=== PATIENT | male | born 1970 | race Caucasian/White ===

== ENCOUNTER 2021-08-02 14:03 | Inpatient (IN) ==
[2021-08-02] MEDS ORDERED: ALBUTEROL/IPRATROPIUM 3 ML NEB RESP TX STA (15:20)
[2021-08-02 15:25] LABS: INR 1.2; PT Patient Result 13.5 SECS (10.5-12.0)
[2021-08-02 15:36] LABS: Albumin 3.4 G/DL (3.4-5.0); Bilirubin,Total 0.8 MG/DL (0.20-1.00); Calcium 8.6 MG/DL (8.5-10.1); Potassium 3.9 MMOL/L (3.5-5.1)
[2021-08-02 15:38] LABS: Basophils # 0.1 10*3/uL (0.0-0.2); Eosinophils # 0.1 10*3/uL (0.0-0.87); Eosinophils % 1.4 % (0.00-10.9); Hematocrit 49.7 VOL% (42.0-52.0); Hemoglobin 15.1 GM/DL (14.0-18.0); Immature Granulocytes % 0.3 %; Immature Granulocytes Absolute 0.02 #; Lymphocytes # 1.7 10*3/uL (1.4-4.0); Lymphocytes % 24.6 % (21.2-54.2); Mean Corpuscular HGB Conc 30.4 GM/DL (32-36); Mean Corpuscular Volume 88.3 FL (87-102); Mean Platelet Volume 11.3 FL (9.6-12.0); Monocytes # 0.4 10*3/uL (0.11-0.8); Monocytes % 6.2 % (1.7-12.7); Neutrophils % 66.5 % (38.7-73.9); Platelet Count 248 T/CUMM (130-400); Red Blood Count 5.63 MC/CUMM (3.8-5.5); Red Cell Distribution Width 14.5 % (9.3-17.3); White Blood Count 6.9 T/CUMM (4-12)
[2021-08-02 15:40] LABS: Arterial Base Excess iSTAT 1 MMOL/L (-2.5-2.5); Arterial Bicarbonate iSTAT 26.2 MMOL/L (20-26); Arterial O2 Saturation iSTAT 98 % (95-100); Arterial PCO2 iSTAT 43 MM HG (35-48); Arterial PO2 iSTAT 109 MM HG (80-95); Arterial Total CO2 iSTAT 27 MMO/L (23-27); Arterial pH iSTAT 7.397 (7.35-7.45)
[2021-08-02] MEDS ORDERED: FUROSEMIDE 40 MG/4 ML VIAL IV STA (15:43)
[2021-08-02] MEDS ORDERED: ASPIRIN 325 MG TABLET PO STA (15:43)
[2021-08-02] MEDS ORDERED: DEXTROSE 50% 25 GM/50 ML VIAL IV PRN (17:27)
[2021-08-02] MEDS ORDERED: GLUCAGON 1 MG VIAL IM PRN ×2 (17:27→17:28)
[2021-08-02] MEDS ORDERED: MAGNESIUM SULF RIDER 2 GM/50 ML PREMIX IV PRN (17:28)
[2021-08-02] MEDS ORDERED: MAGNESIUM SULF RIDER 4 GM/100 ML PREMIX IV PRN (17:28)
[2021-08-02] MEDS ORDERED: ONDANSETRON 4 MG/2 ML VIAL IV PRN (17:28)
[2021-08-02] MEDS ORDERED: DEXTROSE 10% 250 ML BAG IV PRN (17:51)
[2021-08-02 18:21] LABS: Thyroid Stimulating Hormone 3.26 uIU/ml (0.358-3.74)
[2021-08-02 18:30] VITALS: BP 148/120
[2021-08-02 18:40] LABS: Bacteria,Urine Occasional /HPF (Few); Hyaline Casts,Urine 3 /LPF (0-3); Mucus,Urine Few /LPF (Occasional); RBC,Urine <1 /HPF (0-4); Squamous Epithelial Cell,Urine Occasional /HPF (0-10)
[2021-08-02] MEDS: POLYETHYLENE GLYCOL POWDER 17 GM PACK PO SCH (18:40)
[2021-08-02 18:43] LABS: Urine Appearance Clear (Clear); Urine Color Yellow (Yellow); Urine pH 5.5 (4.5-8.0)
[2021-08-02 18:44] LABS: Bilirubin,Urine Negative (Negative); Blood, Urine Negative (Negative); Glucose,Urine (UA) Negative (Negative); Ketones,Urine Negative (Negative); Nitrite,Urine Negative (Negative); Protein,Urine 100 mg/dL (Negative); Urine Specific Gravity >= 1.030 (1.001-1.035); Urine Urobilinogen < 2.0 eU/dL (<2.0)
[2021-08-02] MEDS: FUROSEMIDE INJ 100 MG in SODIUM CHLORIDE 0.9% 90 ML IV SCH (18:51)
[2021-08-02] MEDS ORDERED: ENOXAPARIN 30 MG/0.3 ML SYRINGE SUBCUT SCH (21:00)
[2021-08-02] MEDS: ENOXAPARIN 40 MG/0.4 ML SYRINGE SUBCUT SCH (21:03)
[2021-08-02] MEDS: carvediloL 3.125 MG TABLET PO SCH (21:04)
[2021-08-02] MEDS: INSULIN REGULAR 100 UNIT/ML SUBCUT SCH (21:04)
[2021-08-02] MEDS: POTASSIUM CHLORIDE 20 MEQ TABLET PO SCH ×2 (21:04→21:05)
[2021-08-03 05:52] LABS: Basophils # 0.1 10*3/uL (0.0-0.2); Basophils % 0.6 % (0.0-0.8); Eosinophils # 0.2 10*3/uL (0.0-0.87); Eosinophils % 2.1 % (0.00-10.9); Hematocrit 47.8 VOL% (42.0-52.0); Hemoglobin 14.8 GM/DL (14.0-18.0); Immature Granulocytes % 0.3 %; Immature Granulocytes Absolute 0.02 #; Lymphocytes # 1.4 10*3/uL (1.4-4.0); Lymphocytes % 17.4 % (21.2-54.2); Mean Corpuscular Volume 86.3 FL (87-102); Monocytes # 0.6 10*3/uL (0.11-0.8); Monocytes % 7.6 % (1.7-12.7); Platelet Count 238 T/CUMM (130-400); Red Blood Count 5.54 MC/CUMM (3.8-5.5); Red Cell Distribution Width 14.3 % (9.3-17.3)
[2021-08-03 06:25] LABS: Albumin 3.3 G/DL (3.4-5.0); Bilirubin,Total 0.8 MG/DL (0.20-1.00); Calcium 8.9 MG/DL (8.5-10.1); Osmolality,Calculated 281.4 MOS/KG (273-304); Potassium 3.6 MMOL/L (3.5-5.1); Risk Ratio 4.06; Total Protein 7.2 G/DL (6.4-8.2); VLDL Cholesterol 19.2 MG/DL
[2021-08-03] MEDS: INSULIN REGULAR 100 UNIT/ML SUBCUT SCH ×4 (08:05→21:54)
[2021-08-03] MEDS: POTASSIUM CHLORIDE 20 MEQ TABLET PO SCH ×2 (08:51→21:20)
[2021-08-03] MEDS: carvediloL 3.125 MG TABLET PO SCH ×2 (08:52→21:20)
[2021-08-03] MEDS: SPIRONOLACTONE 25 MG TABLET PO SCH (08:52)
[2021-08-03] MEDS: POLYETHYLENE GLYCOL POWDER 17 GM PACK PO SCH (08:52)
[2021-08-03] MEDS: LOSARTAN 25 MG TABLET PO SCH (08:54)
[2021-08-03] MEDS: ASPIRIN EC 81 MG TABLET PO SCH (08:54)
[2021-08-03] MEDS: PANTOPRAZOLE 40 MG TABLET PO SCH (08:54)
[2021-08-03] MEDS ORDERED: metOLazone 2.5 MG TABLET PO SCH (09:00)
[2021-08-03] MEDS: FUROSEMIDE INJ 100 MG in SODIUM CHLORIDE 0.9% 90 ML IV SCH (11:25)
[2021-08-03] MEDS ORDERED: ALBUTEROL/IPRATROPIUM 3 ML NEB RESP TX PRN (11:58)
[2021-08-03] MEDS: ENOXAPARIN 40 MG/0.4 ML SYRINGE SUBCUT SCH (21:20)
[2021-08-03] MEDS: guaiFENesin 200 MG/10 ML UDCUP PO PRN (21:25)
[2021-08-04] MEDS: guaiFENesin 200 MG/10 ML UDCUP PO PRN (02:30)
[2021-08-04] MEDS: INSULIN REGULAR 100 UNIT/ML SUBCUT SCH ×4 (08:22→22:03)
[2021-08-04] MEDS: FUROSEMIDE INJ 100 MG in SODIUM CHLORIDE 0.9% 90 ML IV SCH (08:22)
[2021-08-04 08:35] LABS: Calcium 8.4 MG/DL (8.5-10.1); Osmolality,Calculated 276.7 MOS/KG (273-304); Potassium 3.4 MMOL/L (3.5-5.1)
[2021-08-04] MEDS ORDERED: POTASSIUM CHLORIDE 20 MEQ TABLET PO ONE (09:30)
[2021-08-04] MEDS: POLYETHYLENE GLYCOL POWDER 17 GM PACK PO SCH (09:31)
[2021-08-04] MEDS: ASPIRIN EC 81 MG TABLET PO SCH (09:31)
[2021-08-04] MEDS ORDERED: KETOROLAC 15 MG/1 ML VIAL IV ONE (09:31)
[2021-08-04] MEDS: POTASSIUM CHLORIDE 20 MEQ TABLET PO SCH ×2 (09:32→21:25)
[2021-08-04] MEDS: PANTOPRAZOLE 40 MG TABLET PO SCH (09:32)
[2021-08-04] MEDS: carvediloL 3.125 MG TABLET PO SCH ×2 (09:32→21:25)
[2021-08-04] MEDS: SPIRONOLACTONE 25 MG TABLET PO SCH (09:33)
[2021-08-04] MEDS: LOSARTAN 25 MG TABLET PO SCH (09:33)
[2021-08-04] MEDS ORDERED: MAGNESIUM CITRATE 300 ML BOTTLE PO ONE (09:40)
[2021-08-04 10:25] LABS: Barbiturates Screen,Urine Negative (Negative); Benzodiazepines Screen,Urine Negative (Negative); Cannabinoid Screen,Urine Negative (Negative); Opiate Screen,Urine Negative (Negative); Phencyclidine Screen,Urine Negative (Negative)
[2021-08-04] MEDS: FUROSEMIDE 20 MG TABLET PO SCH (16:44)
[2021-08-04] MEDS: ENOXAPARIN 40 MG/0.4 ML SYRINGE SUBCUT SCH (21:25)
[2021-08-05 04:50] LABS: Calcium 8.7 MG/DL (8.5-10.1); Osmolality,Calculated 281.5 MOS/KG (273-304); Potassium 4.6 MMOL/L (3.5-5.1)
[2021-08-05] MEDS: INSULIN REGULAR 100 UNIT/ML SUBCUT SCH ×3 (07:57→15:49)
[2021-08-05] MEDS: FUROSEMIDE 20 MG TABLET PO SCH ×2 (08:04→16:02)
[2021-08-05] MEDS: LOSARTAN 25 MG TABLET PO SCH (09:23)
[2021-08-05] MEDS: carvediloL 3.125 MG TABLET PO SCH (09:23)
[2021-08-05] MEDS: PANTOPRAZOLE 40 MG TABLET PO SCH (09:23)
[2021-08-05] MEDS: POLYETHYLENE GLYCOL POWDER 17 GM PACK PO SCH (09:23)
[2021-08-05] MEDS: POTASSIUM CHLORIDE 20 MEQ TABLET PO SCH (09:23)
[2021-08-05] MEDS: SPIRONOLACTONE 25 MG TABLET PO SCH (09:23)
[2021-08-05] MEDS: ASPIRIN EC 81 MG TABLET PO SCH (09:24)
[2021-08-05] MEDS ORDERED: MAGNESIUM CITRATE 300 ML BOTTLE PO ONE (13:12)
== END 2021-08-05 17:00 | disposition home health service (06) | DRG 291 ==
LOC: N.EDINP 14:03 → N.ED 14:03 → SUATTDRO 16:49 → N.ICU 17:36
PROVIDERS: ADMIT Internal Medicine Geriatric Medicine; ATTEND Internal Medicine Geriatric Medicine